=== PATIENT | male | born 1975 ===

== ENCOUNTER 2017-04-16 22:48 | Emergency (ER) | payer OTHER ==
[2017-04-16 22:54] VITALS: TEMP 99.8; O2SAT 99
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
[2017-04-17 01:20] VITALS: BP 135/80; PULSE 85; RESP 16
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
--- NOTE | 2017-04-17 09:46 | RAD ---
PROCEDURE: Left Foot Radiographs. HISTORY: LEFT foot pain COMPARISON: None. FINDINGS: BONES: Normal. No fracture. Small posterior calcaneal spur is noted. No periosteal reaction is seen. No erosions are noted. Mild degenerative changes are seen. JOINTS: Normal. There is no abnormal widening of the proximal 1st and 2nd tarsal metatarsal joint. Subtalar joint is unremarkable. SOFT TISSUES: Very mild soft tissue swelling. OTHER FINDINGS: None. IMPRESSION: No appreciable fracture. Mild degenerative changes.
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
== END 2017-04-17 01:27 | disposition home or self-care (01) ==
LOC: H.ER 22:48
DX: S90.32XA Contusion of left foot, initial encounter (principal); V03.90XA Pedestrian on foot injured in collision with car, pick-up truck or van, unspecified whether traffic or nontraffic accident, initial encounter; Y92.410 Unspecified street and highway as the place of occurrence of the external cause
CPT/HCPCS: 73590; 73610; 73630; 96374; 99283; J1885